=== PATIENT | male | born 1940 | race African-American/Black ===

== ENCOUNTER 2024-07-23 20:11 | Inpatient (IN) | payer OTHER ==
[~2024-07-23] VITALS: Ht 170.2 cm; Wt 64.9 kg
[2024-07-23 21:33] LABS: BASOPHILS % 1.6 % (0.0-2.0); EOSINOPHILS % 5.8 % (0.0-5.0); HEMATOCRIT. 34.2 % (42.0-52.0); HEMOGLOBIN. 10.9 g/dL (14.0-18.0); LYMPHOCYTES % 9.9 % (20.0-50.0); MEAN CORPUSCULAR HGB CONC 31.7 g/dL (31.0-37.0); MEAN CORPUSCULAR VOLUME 91.2 fL (80.0-94.0); MEAN PLATELET VOLUME 8.9 fl (7.4-10.4); MONOCYTES % 4.8 % (2.0-8.0); NEUTROPHILS % 77.9 % (40.0-76.0); PLATELET 166 x1000/uL (130-400); RED BLOOD CELL COUNT 3.75 mill/uL (4.7-6.1); WHITE BLOOD COUNT 3.7 x1000/uL (4.5-11.0)
[2024-07-23 21:41] LABS: CARBON DIOXIDE 19 mEq/L (21-32); CHLORIDE 95 mEq/L (98-107); POTASSIUM 4.3 mEq/L (3.5-5.1); SODIUM 128 mEq/L (136-145)
[2024-07-23 21:42] LABS: CALCIUM 8.2 mg/dL (8.7-10.4)
[2024-07-23 21:44] LABS: INR 2.1; PROTHROMBIN TIME 22.4 sec (9.6-11.0)
[2024-07-23 21:47] LABS: GLUCOSE 90 mg/dL (70-105); UREA NITROGEN BLOOD 44 mg/dL (9-23)
[2024-07-23 21:48] LABS: ALANINE AMINOTRANSFERASE 8 IU/L (10-49)
[2024-07-23 21:49] LABS: ALBUMIN 4.4 g/dL (3.2-4.8); ASPARTATE AMINOTRANSFERASE 13 IU/L (<34); BILIRUBIN DIRECT < 0.1 mg/dL (<=3.0); BILIRUBIN TOTAL < 0.2 mg/dL (0.1-1.0); ETHANOL BLOOD < 10 mg/dL (<10)
[2024-07-23 21:51] LABS: CREATININE 9.6 mg/dL (0.6-1.3); TROPONIN I HIGH SENSITIVITY 134 ng/L (3.0-53)
[2024-07-23] MEDS: SODIUM CHLORIDE 0.9% 1,000 ML IV ONE (22:46)
[2024-07-23] MEDS: SODIUM CHLORIDE 0.9% 250 ML IV ONE (22:48)
[2024-07-24] MEDS ORDERED: CALC667C PO (05:01)
[2024-07-24] MEDS ORDERED: HYDR50TA39 PO (05:01)
[2024-07-24] MEDS ORDERED: NIFE-71 PO (05:01)
[2024-07-24] MEDS ORDERED: WARF4TAB71 PO (05:01)
[2024-07-24] MEDS ORDERED: PRAV40TA58 PO (05:01)
[2024-07-24] MEDS ORDERED: DOCUSATE SODIUM 100MG CAPSULE PO PRN (05:15)
[2024-07-24] MEDS ORDERED: ACETAMINOPHEN 325MG TABLET PO PRN (05:15)
[2024-07-24] MEDS ORDERED: ONDANSETRON HCL 4MG/2ML INJ IV PRN (05:15)
[2024-07-24] MEDS ORDERED: IPRATROPIUM/ALBUTEROL 0.5-3(2.5)MG/3ML NEB HHN PRN (05:15)
[2024-07-24] MEDS ORDERED: CLONIDINE 0.1MG TABLET PO PRN (05:15)
[2024-07-24] MEDS: PANTOPRAZOLE 40MG DR TABLET PO SCH (06:51)
[2024-07-24] MEDS: NIFEDIPINE XL 60MG TAB PO SCH (10:04)
[2024-07-24] MEDS: HYDRALAZINE HCL 50MG TABLET PO SCH (10:04)
[2024-07-24] MEDS: CALCIUM ACETATE 667MG CAPSULE PO SCH (10:04)
[2024-07-24 10:24] LABS: INR 2.2; PROTHROMBIN TIME 23.5 sec (9.6-11.0)
[2024-07-24 10:25] LABS: POTASSIUM 4.6 mEq/L (3.5-5.1)
[2024-07-24 10:27] LABS: CALCIUM 7.5 mg/dL (8.7-10.4)
[2024-07-24 10:29] LABS: TROPONIN I HIGH SENSITIVITY 130 ng/L (3.0-53)
[2024-07-24 10:34] LABS: THYROID STIMULATING HORMONE 2.71 uIU/mL (0.55-4.78)
[2024-07-24 11:12] LABS: VITAMIN B12 SERUM 295 pg/mL (211-911)
[2024-07-24 11:18] LABS: BASOPHILS % 1.5 % (0.0-2.0); EOSINOPHILS % 7.8 % (0.0-5.0); HEMATOCRIT. 32.5 % (42.0-52.0); HEMOGLOBIN. 10.3 g/dL (14.0-18.0); LYMPHOCYTES % 19.8 % (20.0-50.0); MEAN CORPUSCULAR HEMOGLOBIN 29.1 pg (28.0-32.0); MEAN CORPUSCULAR HGB CONC 31.7 g/dL (31.0-37.0); MEAN CORPUSCULAR VOLUME 91.8 fL (80.0-94.0); MEAN PLATELET VOLUME 9.6 fl (7.4-10.4); MONOCYTES % 5.9 % (2.0-8.0); PLATELET 172 x1000/uL (130-400); RED BLOOD CELL COUNT 3.54 mill/uL (4.7-6.1); RED CELL DISTRIBUTION WIDTH 18.3 % (11.6-14.6); WHITE BLOOD COUNT 3.5 x1000/uL (4.5-11.0)
[2024-07-24 11:48] LABS: HEPATITIS B SURFACE ANTIGEN NEGATIVE (Negative)
[2024-07-24 12:09] LABS: HEPATITIS A AB IGM NEGATIVE (Negative)
[2024-07-24 12:10] LABS: HEPATITIS B CORE AB IGM NEGATIVE (Negative); HEPATITIS C AB NON REACTIVE (Neg) (Negative)
[2024-07-24 13:59] LABS: CLARITY URINE CLEAR (CLEAR); COLOR URINE YELLOW (YELLOW); GLUCOSE URINE NEGATIVE (NEGATIVE); KETONES URINE NEGATIVE (NEGATIVE); LEUKOCYTE ESTERASE URINE NEGATIVE (NEGATIVE); NITRITE URINE NEGATIVE (NEGATIVE); OCCULT BLOOD URINE NEGATIVE (NEGATIVE); PH URINE 5.5 (4.5-8.0); PROTEIN URINE 1+ (NEGATIVE); SPECIFIC GRAVITY URINE 1.007 (1.005-1.030); UROBILINOGEN URINE 0.2 E.U./dL (0.2-1.0)
[2024-07-24 14:14] LABS: SQUAMOUS EPITHELIAL CELL URINE FEW /lpf (RARE/1+)
[2024-07-24 14:15] LABS: WBC URINE 0-2 /hpf (0-2)
[2024-07-24 14:16] LABS: BACTERIA URINE NONE SEEN; RBC URINE 0-2 /hpf (0-2)
[2024-07-24 16:00] VITALS: BP 157/91; PULSE 78; RESP 20; TEMP 36.50292; O2SAT 98
[2024-07-24 16:31] VITALS: BP 178/81; PULSE 77; RESP 20; TEMP 36.5292
[2024-07-24] MEDS: WARFARIN SODIUM 4MG TABLET PO NR (18:19)
[2024-07-24 20:00] VITALS: BP 118/63; PULSE 75; RESP 20; TEMP 36.28068; O2SAT 97
[2024-07-24] MEDS: ATORVASTATIN CALCIUM 40MG TABLET PO SCH (22:03)
[2024-07-24] MEDS ORDERED: DEXTROSE 50% WATER 50ML SYRINGE IV PRN (23:15)
[2024-07-25] VITALS (7 sets, daily range): BP systolic 131–170; BP diastolic 58–98; PULSE 68–90; RESP 18–20; TEMP 36.33624–36.6696; O2SAT 96–100
[2024-07-25] MEDS: INSULIN LISPRO 100 UNITS/ML SUBCUT SCH (06:18)
[2024-07-25] MEDS: BLOOD SUGAR DIAGNOSTIC STRIP TEST SCH (06:18)
[2024-07-25 06:42] LABS: BASOPHILS % 1.3 % (0.0-2.0); DIFFERENTIAL COMMENT 0; EOSINOPHILS % 8.3 % (0.0-5.0); HEMATOCRIT. 33.2 % (42.0-52.0); HEMOGLOBIN. 10.4 g/dL (14.0-18.0); LYMPHOCYTES % 13.2 % (20.0-50.0); MEAN CORPUSCULAR HGB CONC 31.4 g/dL (31.0-37.0); MEAN CORPUSCULAR VOLUME 92.3 fL (80.0-94.0); MEAN PLATELET VOLUME 9.6 fl (7.4-10.4); NEUTROPHILS % 70.2 % (40.0-76.0); PLATELET 161 x1000/uL (130-400); RED CELL DISTRIBUTION WIDTH 18.6 % (11.6-14.6); WHITE BLOOD COUNT 3.3 x1000/uL (4.5-11.0)
[2024-07-25 06:48] LABS: THYROID STIMULATING HORMONE 2.98 uIU/mL (0.55-4.78)
[2024-07-25 07:18] LABS: CHLORIDE 100 mEq/L (98-107); POTASSIUM 3.5 mEq/L (3.5-5.1); SODIUM 133 mEq/L (136-145)
[2024-07-25 07:20] LABS: CARBON DIOXIDE 18 mEq/L (21-32)
[2024-07-25 07:21] LABS: CALCIUM 8.2 mg/dL (8.7-10.4)
[2024-07-25 07:25] LABS: UREA NITROGEN BLOOD 24 mg/dL (9-23)
[2024-07-25 07:26] LABS: GLUCOSE 64 mg/dL (70-105)
[2024-07-25 07:27] LABS: ALANINE AMINOTRANSFERASE < 7 IU/L (10-49); ALBUMIN 3.9 g/dL (3.2-4.8); ASPARTATE AMINOTRANSFERASE 10 IU/L (<34)
[2024-07-25 07:28] LABS: BILIRUBIN TOTAL < 0.2 mg/dL (0.1-1.0); PHOSPHORUS 3.6 mg/dL (2.5-4.9); PROTEIN TOTAL 6.4 g/dL (6.0-8.3)
[2024-07-25 07:31] LABS: BILIRUBIN DIRECT < 0.1 mg/dL (<=3.0); CREATININE 6.8 mg/dL (0.6-1.3)
[2024-07-25] MEDS ORDERED: WARFARIN SODIUM 4MG TABLET PO SCH (18:00)
== END 2024-07-25 12:15 | disposition home or self-care (01) | DRG 640 ==
LOC: ER 20:11 → 5WST 23:08 → EDBEDREQ 23:19 → EDBEDREQTM 23:19 → 5WST 07-24 02:18 → 8WST 07-24 14:58
PROVIDERS: ADMIT Internal Medicine Pulmonary Disease; ATTEND Internal Medicine Pulmonary Disease
PROC: 5A1D70Z Performance of Urinary Filtration, Intermittent, Less than 6 Hours Per Day (ICD-10-PCS; principal; 2024-07-25)
DX: E86.0 Dehydration (principal); N18.6 End stage renal disease; N25.81 Secondary hyperparathyroidism of renal origin; I31.39 Other pericardial effusion (noninflammatory); I12.0 Hypertensive chronic kidney disease with stage 5 chronic kidney disease or end stage renal disease; E87.1 Hypo-osmolality and hyponatremia; D64.9 Anemia, unspecified; D72.819 Decreased white blood cell count, unspecified; E11.22 Type 2 diabetes mellitus with diabetic chronic kidney disease; J45.909 Unspecified asthma, uncomplicated; K57.30 Diverticulosis of large intestine without perforation or abscess without bleeding; I48.91 Unspecified atrial fibrillation; E78.5 Hyperlipidemia, unspecified; E11.51 Type 2 diabetes mellitus with diabetic peripheral angiopathy without gangrene; Z99.2 Dependence on renal dialysis; Z89.512 Acquired absence of left leg below knee; Z87.891 Personal history of nicotine dependence; Z83.3 Family history of diabetes mellitus; Z82.49 Family history of ischemic heart disease and other diseases of the circulatory system; Z79.01 Long term (current) use of anticoagulants
CPT/HCPCS: 36415; 71045; 74176; 80048; 80076; 80320; 81003; 82533; 82607; 82962; 83036; 83735; 83880; 84100; 84443; 84484; 85025; 86705; 86709; 87340; 90935; 93005; 99285; J2405; J7030; J7050; G0480